=== PATIENT | male | born 1970 | race Caucasian/White ===

== ENCOUNTER 2017-09-26 19:21 | Emergency (ER) | payer MEDICARE, OTHER ==
[~2017-09-26] VITALS: Ht 172.7 cm; Wt 65.8 kg
[~2017-09-26 19:21] MED LIST: ASPI81EC PO; IBUP800 PO; PENVK500 PO; PROM25 PO
== END 2017-09-26 20:22 | disposition home or self-care (01) ==
LOC: ER 19:21
DX: S01.01XA Laceration without foreign body of scalp, initial encounter (principal); Z87.891 Personal history of nicotine dependence; W01.0XXA Fall on same level from slipping, tripping and stumbling without subsequent striking against object, initial encounter; Y93.01 Activity, walking, marching and hiking; Y92.828 Other wilderness area as the place of occurrence of the external cause
CPT/HCPCS: 99282